=== PATIENT | male | born 1940 | race Caucasian/White ===

== ENCOUNTER → 2018-09-12 | Day surgery (SDC) | payer MEDICARE, OTHER ==
[~2018-09-12] MED LIST: Acetaminophen 325 MG Tab PO PRN; Apraclonidine 0.5% Ophth Soln 5 ML Bot EYELF ONE; Balanced Salt Solution Ophth Irrig 500 ML Bottle IOCULAR ONE; Cataract Ophth Solution EYELF ONE; Chondroitin Sulfate/Hyaluronate Sodium Ophth Inj 0.75 ML Syringe EYELF ONE; Dexamethasone 4 MG/ML SDV IV ONE; Dexamethasone/Neomycin/Polymyxin B Ophth Oint 3.5 GM Tube EYELF ONE; Diclofenac Sodium 0.1% Ophth Soln 5 ML Bottle EYELF ONE; Lidocaine 1% 30 ML SDV ONE; Midazolam 1 MG/ML 2 ML SDV IV ONE; Moxifloxacin 0.5% Ophth Soln 3 ML Bottle EYELF ONE; Ondansetron 4 MG/2 ML SDV IVPUSH PRN; Phenylephrine 10% Ophth Soln 5 ML Bot EYELF ONE; Phenylephrine 10% Ophth Soln 5 ML Bot EYELF PRN; Povidone-Iodine 5% Sterile Ophth Soln 30 ML Bottle EYELF ONE; Proparacaine 0.5% Ophth Soln 15 ML Bottle EYELF ONE; Sodium Chloride 0.9% 10 ML Syringe FLUSH PRN; Tetracaine HCl/PF 0.5% 4 ML Bottle EYELF ONE; Timolol Maleate 0.5% Ophth Soln 5 ML Bottle EYELF ONE; Vancomycin 500 MG SDV EYELF ONE
--- NOTE | 2018-09-12 09:55 | OR ---
DATE: 09/12/2018 PREOPERATIVE DIAGNOSIS: Visually significant mixed cataract, left eye. POSTOPERATIVE DIAGNOSIS: Visually significant mixed cataract, left eye. PROCEDURE: Extracapsular cataract extraction with intraocular lens implant, left eye. ANESTHESIA: Topical/local MAC. COMPLICATIONS: None. INDICATION: This gentleman was seen in the clinic. He has complained of difficulty driving, difficulty with bright lights and glare. Examination reveals visually significant mixed, nuclear, and cortical cataract. I explained options, offered cataract surgery, and I explained risks including the potential for infection, retinal detachment, and loss of vision amongst others. We discussed implant options. He has requested surgery with a monofocal implant. OPERATIVE DESCRIPTION: After informed consent was obtained and the risks, benefits, and alternatives were explained, the patient was brought to the operative suite and topical anesthesia was administered. The patient was then prepped and draped in the sterile fashion, and attention was placed on the left eye. A sterile lid speculum was placed into the left eye to allow operative exposure. A full-thickness paracentesis was made in the temporal portion of the operative eye. Preservative-free lidocaine 0.1 mL was injected into the anterior chamber followed by viscoelastic. A full-thickness corneal incision was then made into the anterior chamber. A bent needle cystotome was used to create a small arnold in the anterior capsule. The capsulorrhexis forceps was then used to create a 360-degree curvilinear capsulorrhexis. The nucleus was then removed using a phacoemulsification handpiece, and the remaining cortical material was then removed with irrigation and aspiration handpiece. Following removal of the cortical material, the capsular bag was then inspected and noted to be free of any holes or tears. Viscoelastic was then injected into the capsular bag and the intraocular lens was inserted into the capsular bag. The viscoelastic material was then removed from both the anterior and posterior chambers and from behind the IOL. The lens and capsular bag were then reinspected. The IOL was well centered and the capsular bag intact. The wound and paracentesis sites were inspected and hydrated with balanced saline solution. Both were found to be self-sealing. The intraocular pressure was assessed digitally and found to be within normal range. A good red reflex was noted at the completion of the procedure. No complications occurred during the operation. At the completion of the procedure, Maxitrol, Voltaren, and Iopidine drops were placed into the operative eye. A sterile eye shield was placed over the operative eye, and the patient was transported to the postoperative recovery area having tolerated the procedure well. Postoperative instructions were given along with a postoperative appointment. The patient was advised to call with any questions or concerns. [facility] /[id number]
== END | disposition home or self-care (01) ==
LOC: DL.SDS 07:28
PROVIDERS: ATTEND Ophthalmology
DX: H25.812 Combined forms of age-related cataract, left eye (principal); I10 Essential (primary) hypertension; E66.9 Obesity, unspecified; Z68.35 Body mass index [BMI] 35.0-35.9, adult; E78.00 Pure hypercholesterolemia, unspecified; M19.90 Unspecified osteoarthritis, unspecified site; Z79.899 Other long term (current) drug therapy; Z88.8 Allergy status to other drugs, medicaments and biological substances
CPT/HCPCS: 00142; A9270-GY; C1780; J1100; J2001; J2250; J3370

== ENCOUNTER 2018-10-10 08:18 | Day surgery (SDC) | payer MEDICARE, OTHER ==
[2018-10-10] MEDS ORDERED: Dexamethasone 4 MG/ML SDV IV ONE (08:19)
[2018-10-10] MEDS ORDERED: Midazolam 1 MG/ML 2 ML SDV IV ONE (08:19)
[2018-10-10] MEDS ORDERED: Sodium Chloride 0.9% 10 ML Syringe IV ONE (08:19)
[2018-10-10] MEDS ORDERED: Phenylephrine 10% Ophth Soln 5 ML Bot EYERT PRN (08:30)
[2018-10-10] MEDS ORDERED: Cataract Ophth Solution EYERT ONE (08:30)
[2018-10-10] MEDS ORDERED: Proparacaine 0.5% Ophth Soln 15 ML Bottle EYERT ONE (08:30)
[2018-10-10] MEDS ORDERED: Povidone-Iodine 5% Sterile Ophth Soln 30 ML Bottle EYERT ONE ×2 (08:30→09:48)
[2018-10-10] MEDS ORDERED: Phenylephrine 10% Ophth Soln 5 ML Bot EYERT ONE (08:30)
[2018-10-10] MEDS ORDERED: Acetaminophen 325 MG Tab PO PRN (08:30)
[2018-10-10] MEDS ORDERED: Ondansetron 4 MG/2 ML SDV IVPUSH PRN (08:30)
[2018-10-10] MEDS ORDERED: Timolol Maleate 0.5% Ophth Soln 5 ML Bottle EYERT ONE (08:30)
[2018-10-10] MEDS ORDERED: Sodium Chloride 0.9% 10 ML Syringe FLUSH PRN (08:30)
[2018-10-10] MEDS ORDERED: Moxifloxacin 0.5% Ophth Soln 3 ML Bottle EYERT ONE (08:30)
[2018-10-10] MEDS ORDERED: Lidocaine 1% 30 ML SDV ONE (09:48)
[2018-10-10] MEDS ORDERED: Tetracaine HCl/PF 0.5% 4 ML Bottle EYERT ONE (09:48)
[2018-10-10] MEDS ORDERED: Apraclonidine 0.5% Ophth Soln 5 ML Bot EYERT ONE (09:49)
[2018-10-10] MEDS ORDERED: Balanced Salt Solution Ophth Irrig 500 ML Bottle IOCULAR ONE (09:50)
[2018-10-10] MEDS ORDERED: Diclofenac Sodium 0.1% Ophth Soln 5 ML Bottle EYERT ONE (09:50)
[2018-10-10] MEDS ORDERED: Dexamethasone/Neomycin/Polymyxin B Ophth Oint 3.5 GM Tube EYERT ONE (09:50)
[2018-10-10] MEDS ORDERED: Chondroitin Sulfate/Hyaluronate Sodium Ophth Inj 0.75 ML Syringe EYERT ONE (09:51)
[2018-10-10] MEDS ORDERED: Vancomycin 500 MG SDV EYERT ONE (09:51)
--- NOTE | 2018-10-10 13:21 | OR ---
DATE: 10/10/2018 PREOPERATIVE DIAGNOSIS: Visually significant mixed cataract, right eye. POSTOPERATIVE DIAGNOSIS: Visually significant mixed cataract, right eye. PROCEDURE: Extracapsular cataract extraction with intraocular lens implant, right eye. ANESTHESIA: Topical/local MAC. COMPLICATIONS: None. INDICATION: Mr. Phoenix was seen in the clinic with complaints of blurred vision, difficulty driving, difficulty with glare. Examination in the clinic revealed mixed cataract with best spectacle corrected vision with oncoming light of 20 unable. Examination revealed mixed 2+ nuclear and cortical cataract. I explained the options, offered cataract surgery, and I explained risks preoperatively including the potential for infection, retinal detachment, loss of vision, and risks associated with anesthesia, amongst others. We discussed the implant options and he has requested a monofocal implant. OPERATIVE DESCRIPTION: After informed consent was obtained and the risks, benefits, and alternatives were explained, the patient was brought to the operative suite and topical anesthesia was administered. The patient was then prepped and draped in the sterile fashion and attention was placed on the right eye. A sterile lid speculum was placed into the right eye to allow operative exposure. A full-thickness paracentesis was made in the temporal portion of the operative eye. Preservative-free lidocaine 0.1 mL was injected into the anterior chamber followed by viscoelastic. A full-thickness corneal incision was then made into the anterior chamber. A bent needle cystotome was used to create a small arnold in the anterior capsule. The capsulorrhexis forceps was then used to create a 360-degree curvilinear capsulorrhexis. The nucleus was then removed using a phacoemulsification handpiece and the remaining cortical material was then removed with irrigation and aspiration handpiece. Following removal of the cortical material, the capsular bag was then inspected and noted to be free of any holes or tears. Viscoelastic was then injected into the capsular bag and the intraocular lens was inserted into the capsular bag. The viscoelastic material was then removed from both the anterior and posterior chambers and from behind the IOL. The lens and capsular bag were then reinspected. The IOL was well centered and the capsular bag intact. The wound and paracentesis sites were inspected and hydrated with balanced saline solution. Both were found to be self- sealing. The intraocular pressure was assessed digitally and found to be within normal range. A good red reflex was noted at the completion of the procedure. No complications occurred during the operation. At the completion of the procedure, Maxitrol, Voltaren, and Iopidine drops were placed into the operative eye. A sterile eye shield was placed over the operative eye and the patient was transported to the postoperative recovery area having tolerated the procedure well. Postoperative instructions were given along with a postoperative appointment. The patient was advised to call with any questions or concerns. [facility] /[id number]
== END 2018-10-10 10:32 | disposition home or self-care (01) ==
LOC: DL.SDS 08:18
PROVIDERS: ATTEND Ophthalmology
DX: H25.811 Combined forms of age-related cataract, right eye (principal); I10 Essential (primary) hypertension; E78.5 Hyperlipidemia, unspecified; Z79.899 Other long term (current) drug therapy
CPT/HCPCS: 66984; A9270; C1780; J1100; J2001; J2250; J3370

== ENCOUNTER 2020-03-07 17:03 | Emergency (ER) | payer MEDICARE, OTHER ==
--- NOTE | 2020-03-07 17:50 | EDM.PDOC ---
<Libby Bello R - Last Filed: 03/07/20 19:22> ED HPI GENERAL MEDICAL PROBLEM - General Chief Complaint: Gastrointestinal Problem Stated Complaint: STOMACH IS FEELING BAD. WILLIAM DIZZY Time Seen by Provider: 03/07/20 17:20 Source of Information: Reports: Patient History Limitations: Reports: No Limitations - History of Present Illness INITIAL COMMENTS - FREE TEXT/NARRATIVE: Patient presents with 2 week history of abdominal discomfort that gotten worse over the past 2 days. He locates his pain in the mid abdomen that radiates diffusely. This is associated with bloating, intermittent nausea and diarrhea. Diarrhea was mild in the past 2 days but today this got worse. He had to use the bathroom about x 10. He denies any blood in stools or melena. He denies fever, chills, cough, vomiting, headaches, chest pain, shortness of breath, flank pain, hematuria. patient states he was started on Lisinopril/HCTZ 2 weeks ago. He thinks this may be the cause of the symptoms. States that his leg swelling has improved since starting Lisinopril/HCTZ. Onset: Gradual Location: Reports: Abdomen, Generalized Quality: Reports: Ache, Pressure Severity: Mild Worsens with: Reports: Movement Associated Symptoms: Reports: Nausea/Vomiting (Nausea but no vomiting) Middle Abdomen Pain Score (Numeric/FACES): 7 - Related Data Allergies Allergy/AdvReac Type Severity Reaction Status Date / Time [id number] Reductase Allergy Muscle Verified 03/07/20 17:33 Inhibitor Aches Home Meds: Home Meds Aloe Vera 1 tab PO BID 09/11/18 [History] Beta-Carotene(A)-Vits C,E/Mins [Vision Vitamins] 1 tab PO DAILY 09/11/18 [History] Bifidobacterium Infantis [Align] 1 tab PO ASDIRECTED 09/11/18 [History] Calcium Carb/Vitamin D3/Vit K1 [Calcium + D Soft Chewable Tab] 1 tab PO ASDIRECTED 09/11/18 [History] Cholecalciferol (Vitamin D3) [Vitamin D3] 1,000 mg PO DAILY 09/11/18 [History] Fluorometholone [Fluorometholone 0.1% Ophth Susp] 1 drop EYEBOTH ASDIRECTED 09/11/18 [History] Garlic 1 tab PO DAILY 09/11/18 [History] Licorice Root Extract [Licorice Root] 1 tab PO DAILY 09/11/18 [History] Melatonin 15 mg PO DAILY 09/11/18 [History] Multivitamin/Iron/Folic Acid [Centrum Complete Multivit] 1 tab PO DAILY 09/11/18 [History] Ofloxacin [Floxin 0.3% Otic Soln] 1 drop EYELF QID 09/11/18 [History] Saw/Vit E/Sod Junie/Lyc/Beta/Pyg [Prostate Health Caplet] 1 tab PO DAILY 09/11/18 [History] Ubidecarenone [Co Q10] 1 tab PO ASDIRECTED 09/11/18 [History] Vitamin B Complex [Super B-50 Complex] 1 tab PO DAILY 09/11/18 [History] atenoloL [Atenolol] 50 mg PO DAILY 09/11/18 [History] Lisinopril/Hydrochlorothiazide [Lisinopril-HCTZ 10-12.5 MG] 10 - 12.5 mg PO DAILY 03/07/20 [History] Past Medical History HEENT History: Reports: Cataract Cardiovascular History: Reports: CAD, High Cholesterol, Hypertension, Other (See Below) Other Cardiovascular History: Hyperlipidemia Respiratory History: Reports: Asthma Gastrointestinal History: Reports: Colon Polyp Genitourinary History: Reports: BPH Musculoskeletal History: Reports: Arthritis Neurological History: Reports: None Psychiatric History: Reports: None Endocrine/Metabolic History: Reports: None Hematologic History: Reports: None Immunologic History: Reports: None Oncologic (Cancer) History: Reports: None Dermatologic History: Reports: Other (See Below) Other Dermatologic History: seborrheic keratosis. skin lesions - Infectious Disease History Other Infectious Disease History: unknown - Past Surgical History Head Surgeries/Procedures: Reports: None HEENT Surgical History: Reports: Cataract Surgery Cardiovascular Surgical History: Reports: Carotid Endarterectomy, Other (See Below) Other Cardiovascular Surgeries/Procedures: carotid artery angioplasty. right carotid endarterectomy GI Surgical History: Reports: Colonoscopy, Polypectomy Male Surgical History: Reports: None Musculoskeletal Surgical History: Reports: Arthroscopic Knee, Other (See Below) Other Musculoskeletal Surgeries/Procedures:: cervical discectomy. bilateral knee arthroscopy. knee surgery. back surgery Social & Family History - Caffeine Use Caffeine Use: Reports: Coffee Caffeine Use Comment: 8 oz daily ED ROS GENERAL - Review of Systems Review Of Systems: See Below Constitutional: Reports: No Symptoms. Denies: Fever, Chills, Fatigue HEENT: Reports: No Symptoms Respiratory: Reports: No Symptoms Cardiovascular: Reports: No Symptoms Endocrine: Reports: No Symptoms GI/Abdominal: Reports: Diarrhea, Nausea. Denies: Black Stool, Bloody Stool, Constipation, Melena, Vomiting : Reports: No Symptoms Musculoskeletal: Reports: No Symptoms Skin: Reports: No Symptoms Neurological: Reports: No Symptoms Psychiatric: Reports: No Symptoms Hematologic/Lymphatic: Reports: No Symptoms Immunologic: Reports: No Symptoms ED EXAM, GI/ABD - Physical Exam Exam: See Below Exam Limited By: No Limitations General Appearance: Alert, WD/WN, No Apparent Distress Eyes: Bilateral: Normal Appearance, EOMI Ears: Normal External Exam, Normal Canal, Hearing Grossly Normal, Normal TMs Nose: Normal Inspection, Normal Mucosa, No Blood Throat/Mouth: Normal Inspection, Normal Lips, Normal Teeth, Normal Gums, Normal Oropharynx, Normal Voice, No Airway Compromise Head: Atraumatic, Normocephalic Neck: Normal Inspection, Supple, Non-Tender, Full Range of Motion Respiratory/Chest: No Respiratory Distress, Lungs Clear, Normal Breath Sounds, No Accessory Muscle Use, Chest Non-Tender Cardiovascular: Normal Peripheral Pulses, Regular Rate, Rhythm, No Edema, No Gallop, No JVD, No Murmur, No Rub GI/Abdominal Exam: Normal Bowel Sounds, Soft, No Organomegaly, No Abnormal Bruit, No Mass, Pelvis Stable, Tender (Mid abdomen). No: Guarding, Rigid, Rebound (Male) Exam: Deferred Rectal (Males) Exam: Deferred Course - Vital Signs Text/Narrative:: Patient was given 1 L bolus of NS. CT of the abdomen was negative for acute inflammatory process. No bowel obstruction, free air or free fluid. It shows bilateral small non-obstructing renal calculi. No evidence of hydronephrosis. Departure - Departure Time of Disposition: 20:17 Disposition: Home, Self-Care 01 Condition: Fair Clinical Impression: Gastroenteritis, HTN (hypertension), ROBBIN (acute kidney injury) - Discharge Information Instructions: Viral Gastroenteritis, Adult, [id number]-[id number], Dehydration, Elderly, [id number] Referrals: Kim Kirkpatrick, [employer] [Primary Care Provider] - Forms: ED Department Discharge Care Plan Goals: Discontinue Lisinopril/HCTZ. Script given for Amlodipine 5mg for 4 days Follow up with PCP on Monday. Encourage pushing fluids. Signs and symptoms that would prompt patient to return to ED were discussed. Discuss BP control outpatient. Sepsis Event Note (ED) - Evaluation Sepsis Screening Result: No Definite Risk <Bobby Devine - Last Filed: 03/08/20 00:43> Course - Vital Signs Last Recorded V/S: Last Vital Signs Temp 36.4 C 03/07/20 17:28 Pulse 60 03/07/20 17:28 Resp 16 03/07/20 17:28 BP 178/54 H 03/07/20 17:28 Pulse Ox 100 03/07/20 17:28 - Orders/Labs/Meds Orders: Active Orders 24 hr Category Date Time Status CULTURE BLOOD [BC] Stat Lab 03/07/20 17:26 Received CULTURE BLOOD [BC] Stat Lab 03/07/20 18:19 Results Blood Culture x2 Reflex Set [OM.PC] Stat Oth 03/07/20 17:16 Ordered Labs: Laboratory Tests 03/07/20 03/07/20 03/07/20 Range/Units 17:15 17:26 17:26 WBC 11.5 H (5.0-10.0) 10^3/uL RBC 5.44 (4.6-6.2) 10^6/uL Hgb 17.4 (14.0-18.0) g/dL Hct 51.4 (40.0-54.0) % MCV 94.5 (80-100) fL MCH 32.0 (27.0-34.0) pg MCHC 33.9 (33.0-35.0) g/dL Plt Count 219 (150-450) 10^3/uL Neut % (Auto) 67.9 (42.2-75.2) % Lymph % (Auto) 21.3 (20.5-50.1) % Schley % (Auto) 9.1 H (2-8) % Eos % (Auto) 1.3 (1.0-3.0) % Baso % (Auto) 0.4 (0.0-1.0) % Sodium 135 L (136-145) mmol/L Potassium 4.6 (3.5-5.1) mmol/L Chloride 96 L (98-107) mmol/L Carbon Dioxide 32 (21-32) mmol/L Anion Gap 11.6 (7-13) mEq/L BUN 33 H (7-18) mg/dL Creatinine 1.98 H (0.70-1.30) mg/dL Est Cr Clr Drug Dosing 30.23 mL/min Estimated GFR (MDRD) 33 BUN/Creatinine Ratio 16.7 (No establ ref range) Glucose 128 H (74-99) mg/dL Lactic Acid (0.4-2.0) mmol/L Calcium 9.8 (8.5-10.1) mg/dL Total Bilirubin 0.7 (0.2-1.0) mg/dL AST 27 (15-37) U/L ALT 55 (16-63) U/L Alkaline Phosphatase 81 (46-116) U/L Total Protein 8.0 (6.4-8.2) g/dL Albumin 4.0 (3.4-5.0) g/dL Globulin 4.0 Albumin/Globulin Ratio 1.0 Amylase 49 (25-115) U/L Lipase 107 (73-393) U/L COVID-19 (PATRICIA) Negative (NEGATIVE) 03/07/20 Range/Units 17:26 WBC (5.0-10.0) 10^3/uL RBC (4.6-6.2) 10^6/uL Hgb (14.0-18.0) g/dL Hct (40.0-54.0) % MCV (80-100) fL MCH (27.0-34.0) pg MCHC (33.0-35.0) g/dL Plt Count (150-450) 10^3/uL Neut % (Auto) (42.2-75.2) % Lymph % (Auto) (20.5-50.1) % Schley % (Auto) (2-8) % Eos % (Auto) (1.0-3.0) % Baso % (Auto) (0.0-1.0) % Sodium (136-145) mmol/L Potassium (3.5-5.1) mmol/L Chloride (98-107) mmol/L Carbon Dioxide (21-32) mmol/L Anion Gap (7-13) mEq/L BUN (7-18) mg/dL Creatinine (0.70-1.30) mg/dL Est Cr Clr Drug Dosing mL/min Estimated GFR (MDRD) BUN/Creatinine Ratio (No establ ref range) Glucose (74-99) mg/dL Lactic Acid 1.3 (0.4-2.0) mmol/L Calcium (8.5-10.1) mg/dL Total Bilirubin (0.2-1.0) mg/dL AST (15-37) U/L ALT (16-63) U/L Alkaline Phosphatase (46-116) U/L Total Protein (6.4-8.2) g/dL Albumin (3.4-5.0) g/dL Globulin Albumin/Globulin Ratio Amylase (25-115) U/L Lipase (73-393) U/L COVID-19 (PATRICIA) (NEGATIVE) Meds: Medications Discontinued Medications Generic Name Dose Route Start Last Admin Trade Name Freq PRN Reason Stop Dose Admin Sodium Chloride 1,000 mls @ 999 mls/hr 03/07/20 18:15 Normal Saline IV .BOLUS DONOVAN Ondansetron HCl 8 mg/ Sodium 54 mls @ 200 mls/hr 03/07/20 18:20 03/07/20 18:31 Chloride IV 03/07/20 18:36 200 mls/hr ONETIME ONE Administration Sodium Chloride 1,000 mls @ 999 mls/hr 03/07/20 18:25 03/07/20 18:26 Normal Saline IV 03/07/20 19:25 999 mls/hr .BOLUS ONE Administration Morphine Sulfate 4 mg 03/07/20 18:42 03/07/20 18:55 Morphine IVPUSH 03/07/20 18:43 4 mg Q2H ONE Administration - Re-Assessments/Exams Free Text/Narrative Re-Assessment/Exam: 03/07/20 20:00 result discussed with pt and BP Rx discussed. Sepsis Event Note (ED) - Focused Exam Vital Signs: Vital Signs Temp Pulse Resp BP Pulse Ox 03/07/20 17:28 36.4 C 60 16 178/54 H 100
[2020-03-07 17:57] LABS: ANION GAP 11.6 mEq/L (7-13)
[2020-03-07] MEDS ORDERED: Sodium Chloride 0.9% 1,000 ML IV SCH (18:15)
[2020-03-07] MEDS ORDERED: Ondansetron 8 MG in Sodium Chloride 0.9% 50 ML IV ONE (18:20)
[2020-03-07] MEDS ORDERED: Sodium Chloride 0.9% 1,000 ML IV ONE (18:25)
[2020-03-07] MEDS ORDERED: Morphine 4 MG/ML Syringe IVPUSH ONE (18:42)
--- NOTE | 2020-03-07 19:32 | CT ---
PROCEDURE INFORMATION: Exam: CT Abdomen And Pelvis Without Contrast Exam date and time: 03/07/2020 7:01 PM Age: 79 years old Clinical indication: Other: Pain; Additional info: Pain, wbc 11,500 TECHNIQUE: Imaging protocol: Computed tomography of the abdomen and pelvis without contrast. Radiation optimization: All CT scans at this facility use at least one of these dose optimization techniques: automated exposure control; mA and/or kV adjustment per patient size (includes targeted exams where dose is matched to clinical indication); or iterative reconstruction. COMPARISON: No relevant prior studies available. FINDINGS: Lungs: There is atelectasis versus scarring in the lung bases. There is a calcified granuloma at the periphery of the right lung. There are no pleural effusions. Mediastinal space: There is a small hiatal hernia. Liver: Allowing for lack of IV contrast, the liver is within normal limits. Gallbladder and bile ducts: The gallbladder is not distended. There is no biliary ductal dilatation. Pancreas: The pancreas is within normal limits. Spleen: The spleen is normal in size. Adrenals: The adrenal glands are normal in appearance. Kidneys and ureters: The kidneys are symmetric in size. There are multiple small nonobstructing calculi in the kidneys bilaterally. On the left, there is a 15 mm round low-density lesion consistent with a benign cyst. Additionally, there is a 9 mm rounded high density lesion which likely represents a benign high density (proteinaceous) cyst. The ureters are normal in caliber. No intraluminal filling defects are identified. Stomach and bowel: The stomach is not distended. No pathologically dilated small bowel loops are identified. There is no evidence of colonic wall thickening or pericolonic inflammation. Appendix: There is a normal appendix in the right lower quadrant. There is an appendicoliths in the base of the appendix. There is no periappendiceal inflammation. Intraperitoneal space: There is no free air or free fluid in the abdomen or pelvis. Vasculature: The aorta is normal in caliber. Lymph nodes: No pathologically enlarged lymph nodes are identified in the abdomen or pelvis. Bladder: The urinary bladder appears normal. Reproductive: The prostate gland and seminal vesicles are unremarkable. Bones/joints: There is normal alignment throughout the visualized portion of the spine. No acute fractures or aggressive bone lesions are identified. There is multilevel degenerative disc disease, most pronounced at L5-S1. The bilateral facet joints are fused anteriorly. Soft tissues: Within normal limits. IMPRESSION: 1. No acute inflammatory process is identified in the abdomen or pelvis on this unenhanced exam. There is no evidence of bowel obstruction, free air or free fluid. 2. Bilateral small nonobstructing renal calculi. No evidence of hydronephrosis or ureteral calculus.
== END 2020-03-07 20:45 | disposition home or self-care (01) ==
LOC: DL.ED 17:03
DX: K52.9 Noninfective gastroenteritis and colitis, unspecified (principal); N17.9 Acute kidney failure, unspecified; I10 Essential (primary) hypertension; I25.10 Atherosclerotic heart disease of native coronary artery without angina pectoris; Z88.8 Allergy status to other drugs, medicaments and biological substances; Z79.899 Other long term (current) drug therapy; Z20.828 Contact with and (suspected) exposure to other viral communicable diseases
CPT/HCPCS: 36415; 74176; 80053; 82150; 83605; 83690; 85025; 87040; 96361; 96374; 96375; 99284; J2270; J2405; J7030; J7050; U0002

== ENCOUNTER 2020-03-30 11:25 | Emergency (ER) | payer MEDICARE, OTHER ==
[2020-03-30] MEDS ORDERED: Nitroglycerin 0.4 MG Tab.SL SL PRN (11:34)
[2020-03-30] MEDS ORDERED: Sodium Chloride 0.9% 10 ML Syringe FLUSH PRN (11:34)
[2020-03-30] MEDS ORDERED: Aspirin 81 MG Tab.Chew PO ONE (11:34)
[2020-03-30 12:12] LABS: PTT,PARTIAL THROMBOPLSTIN TIME 24.7 SEC (22.0-34.0)
[2020-03-30 12:18] LABS: ANION GAP 11.3 mEq/L (7-13); CHLORIDE,CL 100 mmol/L (98-107); SODIUM,NA 140 mmol/L (136-145)
--- NOTE | 2020-03-30 12:27 | CR ---
PROCEDURE INFORMATION: Exam: XR Chest, 1 View Exam date and time: 03/30/2020 11:50 AM Age: 79 years old Clinical indication: Chest pain TECHNIQUE: Imaging protocol: XR of the chest Views: 1 view. COMPARISON: No relevant prior studies available. FINDINGS: Lungs: Unremarkable. No consolidation. Pleural space: Unremarkable. No pleural effusion. No pneumothorax. Heart/Mediastinum: Unremarkable. No cardiomegaly. Bones/joints: Unremarkable. IMPRESSION: No acute findings.
--- NOTE | 2020-03-30 12:46 | EDM.PDOC ---
Scribed by Parul Hager 03/30/20 1242 for Adriana Keene MD ED HPI GENERAL MEDICAL PROBLEM - General Chief Complaint: Chest Pain Stated Complaint: chest pain tingly on one side of face Time Seen by Provider: 03/30/20 11:29 Source of Information: Reports: Patient, RN, RN Notes Reviewed History Limitations: Reports: No Limitations - History of Present Illness INITIAL COMMENTS - FREE TEXT/NARRATIVE: Patient presents to the ED by POV with left facial tingling and left sided chest pain that began last night and worsened today. Patient reports he was recently seen at clinic and was told that he has "heart blocks" and needs to be evaluated at the [facility]. Patient states he had aspirin last night but none today and no nitro. Review of myocardial perfusion scan and stress test reports from 03/24/20 reveals pt actually had a normal stress test and an intermediate risk on the perfusion study. The pt was of the understanding that he had severe cardiac disease, and states his PCP told him he was a "walking heart attack". Onset: Gradual Duration: Constant Location: Reports: Chest Quality: Reports: Ache Severity: Moderate Improves with: Reports: None Worsens with: Reports: None Associated Symptoms: Reports: No Other Symptoms Chest Pain Score (Numeric/FACES): 2 - Related Data Allergies Allergy/AdvReac Type Severity Reaction Status Date / Time Kphstnp-Zak-Yiy Reductase Allergy Muscle Verified 03/30/20 11:43 Inhibitor Aches Home Meds: Home Meds Cholecalciferol (Vitamin D3) [Vitamin D3] 1,000 mg PO DAILY 09/11/18 [History] Melatonin 15 mg PO DAILY 09/11/18 [History] Multivitamin/Iron/Folic Acid [Centrum Complete Multivit] 1 tab PO DAILY 09/11/18 [History] Saw/Vit E/Sod Junie/Lyc/Beta/Pyg [Prostate Health Caplet] 1 tab PO DAILY 09/11/18 [History] atenoloL [Atenolol] 50 mg PO DAILY 09/11/18 [History] amLODIPine [Norvasc] 5 mg PO DAILY 03/23/20 [History] Lisinopril/Hydrochlorothiazide [Lisinopril-Hctz 10-12.5 mg Tab] 1 tab PO DAILY 03/30/20 [History] Past Medical History HEENT History: Reports: Cataract Cardiovascular History: Reports: CAD, High Cholesterol, Hypertension, Other (See Below) Other Cardiovascular History: Hyperlipidemia Respiratory History: Reports: Asthma Gastrointestinal History: Reports: Colon Polyp Genitourinary History: Reports: BPH Musculoskeletal History: Reports: Arthritis Neurological History: Reports: None Psychiatric History: Reports: None Endocrine/Metabolic History: Reports: None Hematologic History: Reports: None Immunologic History: Reports: None Oncologic (Cancer) History: Reports: None Dermatologic History: Reports: Other (See Below) Other Dermatologic History: seborrheic keratosis. skin lesions - Infectious Disease History Other Infectious Disease History: unknown - Past Surgical History Head Surgeries/Procedures: Reports: None HEENT Surgical History: Reports: Cataract Surgery Cardiovascular Surgical History: Reports: Carotid Endarterectomy, Other (See Below) Other Cardiovascular Surgeries/Procedures: carotid artery angioplasty. right carotid endarterectomy GI Surgical History: Reports: Colonoscopy, Polypectomy Male Surgical History: Reports: None Musculoskeletal Surgical History: Reports: Arthroscopic Knee, Other (See Below) Other Musculoskeletal Surgeries/Procedures:: cervical discectomy. bilateral knee arthroscopy. knee surgery. back surgery Social & Family History - Caffeine Use Caffeine Use: Reports: Coffee Caffeine Use Comment: 8 oz daily ED ROS GENERAL - Review of Systems Review Of Systems: Comprehensive ROS is negative, except as noted in HPI. ED EXAM, GENERAL - Physical Exam Exam: See Below Exam Limited By: No Limitations General Appearance: Alert, WD/WN, No Apparent Distress, Anxious Nose: Normal Inspection, Normal Mucosa, No Blood Throat/Mouth: Normal Lips, Normal Voice, No Airway Compromise Head: Atraumatic, Normocephalic Neck: Normal Inspection, Supple, Non-Tender, Full Range of Motion Respiratory/Chest: No Respiratory Distress, Lungs Clear, Normal Breath Sounds, No Accessory Muscle Use, Chest Non-Tender Cardiovascular: Regular Rate, Rhythm, No Edema GI/Abdominal: Normal Bowel Sounds, Soft, Non-Tender Back Exam: Normal Inspection Extremities: Normal Inspection, Normal Range of Motion, Non-Tender, Normal Capillary Refill, No Pedal Edema Neurological: Alert, Oriented, No Motor/Sensory Deficits Psychiatric: Anxious Skin Exam: Warm, Dry, Intact, Normal Color, No Rash EKG INTERPRETATION EKG Date: 03/30/20 Time: 11:34 Rhythm: Other (sinus rhythm) Rate (Beats/Min): 60 [place]: Normal P-Wave: Present QRS: Wide (borderline AV conduction delay) ST-T: Normal QT: Normal Course - Vital Signs Last Recorded V/S: Last Vital Signs Temp 97.3 F 03/30/20 11:34 Pulse 62 03/30/20 11:34 Resp 16 03/30/20 11:34 BP 210/76 H 03/30/20 11:34 Pulse Ox 99 03/30/20 11:34 - Orders/Labs/Meds Orders: Active Orders 24 hr Category Date Time Status EKG 12 Lead [EKG Documentation Completion] [RC] STAT Care 03/30/20 11:34 Active Peripheral IV Care [RC] . DIRECTED Care 03/30/20 11:35 Active B-TYPE NATRIURETIC PEPTIDE,BNP [CHEM] Stat Lab 03/30/20 11:42 Results COMPREHENSIVE METABOLIC PN,CMP [CHEM] Stat Lab 03/30/20 11:42 Results LIPASE [CHEM] Stat Lab 03/30/20 11:42 Results TROPONIN I [CHEM] Stat Lab 03/30/20 11:42 Results Nitroglycerin [Nitrostat] Med 03/30/20 11:34 Active 0.4 mg SL Q5M PRN Sodium Chloride 0.9% [Saline Flush] Med 03/30/20 11:34 Active 10 ml FLUSH ASDIRECTED PRN Peripheral IV Insertion Adult [OM.PC] Stat Oth 03/30/20 11:34 Ordered Medication Orders Nitroglycerin (Nitrostat) 0.4 mg SL Q5M PRN PRN Reason: Chest Pain Sodium Chloride (Saline Flush) 10 ml FLUSH ASDIRECTED PRN PRN Reason: Keep Vein Open Last Admin: 03/30/20 11:42 Dose: 10 ml Documented by: SERGE Labs: Laboratory Tests 03/30/20 03/30/20 03/30/20 Range/Units 11:42 11:42 11:42 WBC 8.5 (5.0-10.0) 10^3/uL RBC 5.42 (4.6-6.2) 10^6/uL Hgb 17.4 (14.0-18.0) g/dL Hct 51.4 (40.0-54.0) % MCV 94.8 (80-100) fL MCH 32.1 (27.0-34.0) pg MCHC 33.9 (33.0-35.0) g/dL Plt Count 199 (150-450) 10^3/uL Neut % (Auto) 51.9 (42.2-75.2) % Lymph % (Auto) 35.8 (20.5-50.1) % [place] % (Auto) 9.2 H (2-8) % Eos % (Auto) 2.5 (1.0-3.0) % Baso % (Auto) 0.6 (0.0-1.0) % PT 9.8 (9.0-12.0) SEC INR 1.0 (0.9-1.2) APTT 24.7 (22.0-34.0) SEC Sodium 140 (136-145) mmol/L Potassium 4.3 (3.5-5.1) mmol/L Chloride 100 (98-107) mmol/L Carbon Dioxide 33 H (21-32) mmol/L Anion Gap 11.3 (7-13) mEq/L BUN 22 H (7-18) mg/dL Creatinine 1.37 H (0.70-1.30) mg/dL Est Cr Clr Drug Dosing 42.22 mL/min Estimated GFR (MDRD) 50 BUN/Creatinine Ratio 16.1 (No establ ref range) Glucose 116 H (74-99) mg/dL Calcium 9.4 (8.5-10.1) mg/dL Total Bilirubin 1.0 (0.2-1.0) mg/dL AST 19 (15-37) U/L ALT 32 (16-63) U/L Alkaline Phosphatase 76 (46-116) U/L Troponin I < 0.017 (0.000-0.056) ng/mL Total Protein 8.1 (6.4-8.2) g/dL Albumin 3.9 (3.4-5.0) g/dL Globulin 4.2 Albumin/Globulin Ratio 0.9 Lipase 112 (73-393) U/L Meds: Medications Generic Name Dose Route Start Last Admin Trade Name Freq PRN Reason Stop Dose Admin Nitroglycerin 0.4 mg 03/30/20 11:34 Nitrostat SL Q5M PRN Chest Pain Sodium Chloride 10 ml 03/30/20 11:34 03/30/20 11:42 Saline Flush FLUSH 10 ml ASDIRECTED PRN Administration Keep Vein Open Discontinued Medications Generic Name Dose Route Start Last Admin Trade Name Crescencioq PRN Reason Stop Dose Admin Aspirin 324 mg 03/30/20 11:34 03/30/20 11:40 Aspirin PO 03/30/20 11:35 324 mg ONETIME ONE Administration - Radiology Interpretation Free Text/Narrative:: [facility] [place] [facility] Final Radiology Report Call: [phone] assistance Online chat: [email or web address] Name: BENITA GHOTRA Age: 79Years M Date: 03/30/2020 SSN: -- : [id number] Study: CR CHEST 1V FRONTAL Requesting Physician: ADRIANA KEENE Images: 1 Addl Studies: Provided Clinical History: chest pain Contrast: Contrast Medium: Contrast Amount: Contrast Method: CONFIDENTIALITY STATEMENT This report is intended only for use by the referring physician, and only in accordance with law. If you received this in error, call [phone]. Page 1 of 1 PROCEDURE INFORMATION: Exam: XR Chest, 1 View Exam date and time: 03/30/2020 11:50 AM Age: 79 years old Clinical indication: Chest pain TECHNIQUE: Imaging protocol: XR of the chest Views: 1 view. COMPARISON: No relevant prior studies available. FINDINGS: Lungs: Unremarkable. No consolidation. Pleural space: Unremarkable. No pleural effusion. No pneumothorax. Heart/Mediastinum: Unremarkable. No cardiomegaly. Bones/joints: Unremarkable. IMPRESSION: No acute findings. Thank you for allowing us to participate in the care of your patient. Dictated and Authenticated by: Brendon Taylor MD 03/30/2020 12:27 PM Central Time ([place] & [place]) Departure - Departure Time of Disposition: 12:38 Disposition: Home, Self-Care 01 Condition: Good Clinical Impression: Systolic hypertension, isolated, Mild dehydration Chest pain Qualifiers: Chest pain type: unspecified Qualified Code(s): R07.9 - Chest pain, unspecified Instructions: Nonspecific Chest Pain, Adult, Dehydration, Elderly, [id number]-ti-Gcrz Forms: ED Department Discharge Additional Instructions: Take Enteric Coated Aspirin 81mg Take two tablets by mouth once every day. Drink plenty of water. Follow up with [facility] as planned. Return to ER or call 911 if you develop worsening chest pain or shortness of breath. Sepsis Event Note (ED) - Focused Exam Vital Signs: Vital Signs Temp Pulse Resp BP Pulse Ox 03/30/20 11:34 97.3 F 62 16 210/76 H 99 - My Orders Last 24 Hours: My Active Orders 03/30/20 11:34 EKG 12 Lead [EKG Documentation Completion] [RC] STAT Nitroglycerin [Nitrostat] 0.4 mg SL Q5M PRN Sodium Chloride 0.9% [Saline Flush] 10 ml FLUSH ASDIRECTED PRN Peripheral IV Insertion Adult [OM.PC] Stat 03/30/20 11:35 Peripheral IV Care [RC] . DIRECTED 03/30/20 11:42 B-TYPE NATRIURETIC PEPTIDE,BNP [CHEM] Stat COMPREHENSIVE METABOLIC PN,CMP [CHEM] Stat LIPASE [CHEM] Stat TROPONIN I [CHEM] Stat - Assessment/Plan Last 24 Hours: My Active Orders 03/30/20 11:34 EKG 12 Lead [EKG Documentation Completion] [RC] STAT Nitroglycerin [Nitrostat] 0.4 mg SL Q5M PRN Sodium Chloride 0.9% [Saline Flush] 10 ml FLUSH ASDIRECTED PRN Peripheral IV Insertion Adult [OM.PC] Stat 03/30/20 11:35 Peripheral IV Care [RC] . DIRECTED 03/30/20 11:42 B-TYPE NATRIURETIC PEPTIDE,BNP [CHEM] Stat COMPREHENSIVE METABOLIC PN,CMP [CHEM] Stat LIPASE [CHEM] Stat TROPONIN I [CHEM] Stat I have read and agree with the documentation that has been completed regarding this visit. By signing this record, I attest that the documentation was completed in my physical presence and is an accurate record of the encounter.
== END 2020-03-30 12:56 | disposition home or self-care (01) ==
LOC: DL.ED 11:25
DX: E86.0 Dehydration (principal); R07.9 Chest pain, unspecified; I10 Essential (primary) hypertension; I25.10 Atherosclerotic heart disease of native coronary artery without angina pectoris; J45.909 Unspecified asthma, uncomplicated; Z88.6 Allergy status to analgesic agent; Z79.899 Other long term (current) drug therapy
CPT/HCPCS: 36415; 71045; 80053; 83690; 83880; 84484; 85025; 85610; 85730; 93005; 99285-25; A9270-GY

== ENCOUNTER 2020-04-05 19:57 | Emergency (ER) | payer MEDICARE, OTHER ==
[2020-04-05] MEDS ORDERED: Nitroglycerin 0.4 MG Tab.SL SL ONE (20:14)
--- NOTE | 2020-04-05 20:25 | EDM.PDOC ---
ED HPI GENERAL MEDICAL PROBLEM - General Chief Complaint: Chest Pain Stated Complaint: TIGHNESS IN CHEST AND LEFT ARM FEELS NUMB AND WEAK Time Seen by Provider: 04/05/20 20:23 Source of Information: Reports: Patient History Limitations: Reports: No Limitations - History of Present Illness INITIAL COMMENTS - FREE TEXT/NARRATIVE: was here week ago for same, pain did go away but returned today while sitting in chair. Left Chest Pain Score (Numeric/FACES): 3 - Related Data Allergies Allergy/AdvReac Type Severity Reaction Status Date / Time Abuiavf-Jyi-Nbe Reductase Allergy Muscle Verified 04/05/20 20:04 Inhibitor Aches Home Meds: Home Meds Cholecalciferol (Vitamin D3) [Vitamin D3] 1,000 mg PO DAILY 09/11/18 [History] Melatonin 15 mg PO DAILY 09/11/18 [History] Multivitamin/Iron/Folic Acid [Centrum Complete Multivit] 1 tab PO DAILY 09/11/18 [History] Saw/Vit E/Sod Junie/Lyc/Beta/Pyg [Prostate Health Caplet] 1 tab PO DAILY 09/11/18 [History] atenoloL [Atenolol] 50 mg PO DAILY 09/11/18 [History] amLODIPine [Norvasc] 5 mg PO DAILY 03/23/20 [History] Lisinopril/Hydrochlorothiazide [Lisinopril-Hctz 10-12.5 mg Tab] 1 tab PO DAILY 03/30/20 [History] Past Medical History HEENT History: Reports: Cataract Cardiovascular History: Reports: CAD, High Cholesterol, Hypertension, Other (See Below) Other Cardiovascular History: Hyperlipidemia Respiratory History: Reports: Asthma Gastrointestinal History: Reports: Colon Polyp Genitourinary History: Reports: BPH Musculoskeletal History: Reports: Arthritis Neurological History: Reports: None Psychiatric History: Reports: None Endocrine/Metabolic History: Reports: None Hematologic History: Reports: None Immunologic History: Reports: None Oncologic (Cancer) History: Reports: None Dermatologic History: Reports: Other (See Below) Other Dermatologic History: seborrheic keratosis. skin lesions - Infectious Disease History Infectious Disease History: Reports: Chicken Pox Other Infectious Disease History: unknown - Past Surgical History Head Surgeries/Procedures: Reports: None HEENT Surgical History: Reports: Cataract Surgery Cardiovascular Surgical History: Reports: Carotid Endarterectomy, Other (See Below) Other Cardiovascular Surgeries/Procedures: carotid artery angioplasty. right carotid endarterectomy GI Surgical History: Reports: Colonoscopy, Polypectomy Male Surgical History: Reports: None Musculoskeletal Surgical History: Reports: Arthroscopic Knee, Other (See Below) Other Musculoskeletal Surgeries/Procedures:: cervical discectomy. bilateral knee arthroscopy. knee surgery. back surgery Social & Family History - Family History Family Medical History: Noncontributory - Tobacco Use Smoking Status *Q: Never Smoker - Caffeine Use Caffeine Use: Reports: Coffee Caffeine Use Comment: 8 oz daily - Recreational Drug Use Recreational Drug Use: No ED ROS GENERAL - Review of Systems Review Of Systems: Comprehensive ROS is negative, except as noted in HPI. ED EXAM, GENERAL - Physical Exam Exam: See Below Exam Limited By: No Limitations General Appearance: Alert, WD/WN, Mild Distress, Other (discomfort) Ears: Hearing Grossly Normal Throat/Mouth: Normal Voice, No Airway Compromise Head: Atraumatic Neck: Non-Tender, Full Range of Motion Respiratory/Chest: No Respiratory Distress Cardiovascular: Regular Rate, Rhythm GI/Abdominal: Soft, Non-Tender (Male) Exam: Deferred Rectal (Males) Exam: Deferred Neurological: Alert, Oriented, Normal Cognition, Normal Gait, No Motor/Sensory Deficits Psychiatric: Flat Affect Skin Exam: Warm, Dry, Normal Color Lymphatic: No Adenopathy Course - Vital Signs Last Recorded V/S: Last Vital Signs Temp 37.2 C 04/05/20 20:04 Pulse 56 L 04/05/20 20:36 Resp 16 04/05/20 20:36 BP 135/56 L 04/05/20 20:36 Pulse Ox 94 L 04/05/20 20:36 - Orders/Labs/Meds Orders: Active Orders 24 hr Category Date Time Status EKG 12 Lead [EKG Documentation Completion] [RC] STAT Care 04/05/20 20:15 Active Labs: Laboratory Tests 04/05/20 04/05/20 04/05/20 Range/Units 20:18 20:18 20:18 WBC 7.9 (5.0-10.0) 10^3/uL RBC 5.30 (4.6-6.2) 10^6/uL Hgb 17.2 (14.0-18.0) g/dL Hct 49.9 (40.0-54.0) % MCV 94.2 (80-100) fL MCH 32.5 (27.0-34.0) pg MCHC 34.5 (33.0-35.0) g/dL Plt Count 190 (150-450) 10^3/uL Neut % (Auto) 48.1 (42.2-75.2) % Lymph % (Auto) 36.3 (20.5-50.1) % [place] % (Auto) 11.6 H (2-8) % Eos % (Auto) 3.1 H (1.0-3.0) % Baso % (Auto) 0.9 (0.0-1.0) % D-Dimer, Quantitative 383 (0-400) ng/mL Sodium 140 (136-145) mmol/L Potassium 4.6 (3.5-5.1) mmol/L Chloride 102 (98-107) mmol/L Carbon Dioxide 32 (21-32) mmol/L Anion Gap 10.6 (7-13) mEq/L BUN 22 H (7-18) mg/dL Creatinine 1.28 (0.70-1.30) mg/dL Est Cr Clr Drug Dosing 45.19 mL/min Estimated GFR (MDRD) 54 BUN/Creatinine Ratio 17.2 (No establ ref range) Glucose 118 H (74-99) mg/dL Calcium 9.3 (8.5-10.1) mg/dL Total Bilirubin 0.6 (0.2-1.0) mg/dL AST 23 (15-37) U/L ALT 30 (16-63) U/L Alkaline Phosphatase 74 (46-116) U/L Troponin I < 0.017 (0.000-0.056) ng/mL Total Protein 7.4 (6.4-8.2) g/dL Albumin 3.6 (3.4-5.0) g/dL Globulin 3.8 Albumin/Globulin Ratio 0.9 Meds: Medications Discontinued Medications Generic Name Dose Route Start Last Admin Trade Name Freq PRN Reason Stop Dose Admin Hydroxyzine HCl 25 mg 04/05/20 21:59 Atarax PO 04/05/20 22:00 ONETIME ONE Nitroglycerin 0.4 mg 04/05/20 20:14 04/05/20 20:17 Nitrostat SL 04/05/20 20:15 0.4 mg ONETIME ONE Administration - Re-Assessments/Exams Free Text/Narrative Re-Assessment/Exam: 04/05/20 22:00 results discussed with pt who states feels much better but like to have something to calm him since he can't seem to stop worrying about his family. sta nikos he has NTG given to him from cardio but never thought about taking it, thought it was for pain only which he didn't have but only a heaviness. Departure - Departure Time of Disposition: 22:02 Disposition: Home, Self-Care 01 Condition: Good Clinical Impression: Systolic hypertension, isolated, Angina at rest Chest pain Qualifiers: Chest pain type: unspecified Qualified Code(s): R07.9 - Chest pain, unspecified Instructions: Angina Forms: ED Department Discharge Additional Instructions: 1) rest 2) notify licensed master social worker tomorrow on tonight's visit 3) recheck if there is any change or concern rx given; hydroxyzine 25mg bid prn x 12 Sepsis Event Note (ED) - Evaluation Sepsis Screening Result: No Definite Risk - Focused Exam Vital Signs: Vital Signs Temp Pulse Resp BP BP Pulse Ox 04/05/20 20:36 56 L 16 135/56 L 94 L 04/05/20 20:17 193/69 H 04/05/20 20:04 37.2 C 62 18 203/61 H 96 - My Orders Last 24 Hours: My Active Orders 04/05/20 20:15 EKG 12 Lead [EKG Documentation Completion] [RC] STAT - Assessment/Plan Last 24 Hours: My Active Orders 04/05/20 20:15 EKG 12 Lead [EKG Documentation Completion] [RC] STAT
[2020-04-05 20:48] LABS: ANION GAP 10.6 mEq/L (7-13); CHLORIDE,CL 102 mmol/L (98-107); SODIUM,NA 140 mmol/L (136-145)
--- NOTE | 2020-04-05 21:11 | CR ---
PROCEDURE INFORMATION: Exam: XR Chest, 1 View Exam date and time: 04/05/2020 8:41 PM Age: 79 years old Clinical indication: Pain; Other: Tingling TECHNIQUE: Imaging protocol: XR of the chest Views: 1 view. COMPARISON: CR Chest 1V Frontal 03/30/2020 11:50 AM FINDINGS: Lungs: Lungs are clear bilaterally. Pleural space: No pleural effusion. No pneumothorax. Heart/Mediastinum: Stable mild enlargement of the cardiac silhouette. Mediastinal contours are unremarkable. Vasculature: Stable vascular calcifications in the aorta. Bones/joints: Unremarkable for age. IMPRESSION: 1. No acute cardiopulmonary process. 2. Incidental/nonacute findings are listed in the report.
--- NOTE | 2020-04-05 21:18 | CT ---
PROCEDURE INFORMATION: Exam: CT Head Without Contrast Exam date and time: 04/05/2020 8:48 PM Age: 79 years old Clinical indication: Pain; Other: Tingling; Additional info: Tingling extremities TECHNIQUE: Imaging protocol: Computed tomography of the head without contrast. Sagittal and coronal reformatted images were created and reviewed. Radiation optimization: All CT scans at this facility use at least one of these dose optimization techniques: automated exposure control; mA and/or kV adjustment per patient size (includes targeted exams where dose is matched to clinical indication); or iterative reconstruction. COMPARISON: No relevant prior studies available. FINDINGS: Brain: No acute intracranial hemorrhage. No acute infarct. No intra-axial or extra-axial masses. Mckeon-white matter differentiation is preserved. No cerebral edema. No extra-axial fluid collections. No midline shift. No evidence for Chiari 1 malformation. Mild atrophy of the brain parenchyma. Ventricles: No hydrocephalus. Bones/joints: Mild right nasal septal deviation. Multilevel degenerative changes of varying severity in the visualized spine. Paranasal sinuses: Paranasal sinuses are clear. Mastoid air cells: Unremarkable as visualized. Orbits: Globes, extraocular muscles, and optic nerves are intact bilaterally. No acute intraorbital abnormality. Vasculature: Mild atherosclerotic changes in the visualized arteries. Soft tissues: No acute abnormality of the extracranial soft tissues. IMPRESSION: 1. No acute abnormality of the brain. 2. Mild atrophy of the brain parenchyma. 3. Incidental/nonacute findings are listed in the report.
[2020-04-05] MEDS ORDERED: hydrOXYzine HCl 25 MG Tab PO ONE (21:59)
== END 2020-04-05 22:13 | disposition home or self-care (01) ==
LOC: DL.ED 19:57
DX: I25.119 Atherosclerotic heart disease of native coronary artery with unspecified angina pectoris (principal); I10 Essential (primary) hypertension; J45.909 Unspecified asthma, uncomplicated; Z88.8 Allergy status to other drugs, medicaments and biological substances; Z79.899 Other long term (current) drug therapy
CPT/HCPCS: 36415; 70450; 71045; 80053; 84484; 85025; 85379; 93005; 99284; 99285-25; A9270-GY